=== PATIENT | male | born 1960 | race African-American/Black ===

== ENCOUNTER 2018-12-04 14:56 | Emergency (ER) | payer OTHER ==
[~2018-12-04] VITALS: Ht 182.9 cm; Wt 93.2 kg
[2018-12-04] MEDS ORDERED: COLD MEDS (15:01)
--- NOTE | 2018-12-04 15:50 | REP ---
Chest x-ray: Two views. History: Cough . Comparison study: No comparison . Findings: The lungs are well inflated and free of infiltrate. The pleural angles are sharp. The heart size is normal. Pulmonary vasculature is not increased. No significant bony abnormality is seen. There is some straightening of the normal thoracic kyphosis. Impression: Negative chest x-ray. Electronically Signed by Dwayne Fuentes MD 12/04/2018 03:41 P
[2018-12-04 17:37] LABS: INFLUENZA A AMPLIFICATION POSITIVE (NEGATIVE); INFLUENZA B AMPLIFICATION NEGATIVE (NEGATIVE)
[2018-12-04] MEDS ORDERED: OSEL75CA PO (17:53)
[2018-12-04] MEDS ORDERED: IBUP-1114 PO (17:53)
[2018-12-04] MEDS ORDERED: IBUPROFEN 400 MG TAB PO ONE (18:00)
[2018-12-04] MEDS ORDERED: OSELTAMIVIR PHOSPHATE 75 MG CAP (TAMIFLU) PO ONE (18:00)
[2018-12-04] MEDS ORDERED: NS 1,000 ML IV ONE (18:15)
[2018-12-04 20:01] VITALS: BP 100/68
== END 2018-12-04 19:57 | disposition home or self-care (01) ==
LOC: M ED 14:56
DX: J09.X2 Influenza due to identified novel influenza A virus with other respiratory manifestations (principal)

== ENCOUNTER 2019-08-26 05:52 | Day surgery (SDC) | payer OTHER ==
[~2019-08-26] VITALS: Ht 182.9 cm; Wt 96.6 kg
[~2019-08-26 05:52] MED LIST: COLD MEDS; IBUP-1114 PO; OSEL75CA PO; QC A650T3 PO
[2019-08-26] MEDS ORDERED: NS 1,000 ML IV ONE (06:00)
[2019-08-26] MEDS ORDERED: PROPOFOL 500 MG/50 ML VIAL As Ordered ONE (07:36)
[2019-08-26] MEDS ORDERED: LIDOCAINE 2% INJ 100 MG/5 ML SDV (FOR ANES.) As Ordered ONE (07:36)
--- NOTE | 2019-08-26 07:59 | ROOR ---
Patient Name: Link Don Procedure Date: 08/26/2019 7:37 AM Date of : 1960 Age: 58 Room: [facility] Gender: Male Note Status: Finalized Procedure: Total Colonoscopy to cecum + Bx. Indications: Screening for colorectal malignant neoplasm Providers: Conor Hernandez MD Referring MD: Best Pickett Md Requesting Provider: Medicines: Monitored Anesthesia Care Complications: No immediate complications. Procedure: Pre-Anesthesia Assessment: - The heart rate, respiratory rate, oxygen saturations, blood pressure, adequacy of pulmonary ventilation, and response to care were monitored throughout the procedure. The Colonoscope was introduced through the anus and advanced to the cecum, identified by appendiceal orifice and ileocecal valve. The colonoscopy was performed without difficulty. The patient tolerated the procedure well. The quality of the bowel preparation was excellent. Findings: The perianal and digital rectal examinations were normal. Non-bleeding internal hemorrhoids were found during retroflexion. The hemorrhoids were small and Grade I (internal hemorrhoids that do not prolapse). A localized area of mildly erythematous mucosa was found in the rectum. Biopsies were taken with a cold forceps for histology. The exam was otherwise without abnormality on direct and retroflexion views. Impression: - Non-bleeding internal hemorrhoids. - Erythematous mucosa in the rectum. Biopsied. - The examination was otherwise normal on direct and retroflexion views. - The exam was otherwise normal to the cecum. Recommendation: - Patient has a contact number available for emergencies. The signs and symptoms of potential delayed complications were discussed with the patient. Return to normal activities tomorrow. Written discharge instructions were provided to the patient. - High fiber diet. - Discharge patient to home. - Continue present medications. - Await pathology results. - Telephone GI clinic for pathology results in 1 week. - Repeat colonoscopy in 10 years for screening purposes. - Return to referring physician. - The findings and recommendations were discussed with the patient's family. Conor Hernandez MD Conor Hernandez MD 08/26/2019 7:58:44 AM Electronically signed by Conor Hernandez MD Number of Addenda: 0 Note Initiated On: 08/26/2019 7:37 AM Estimated Blood Loss: Estimated blood loss: none.
[2019-08-26 08:26] VITALS: BP 142/95
== END 2019-08-26 08:28 | disposition home or self-care (01) ==
LOC: M OPP 05:52
PROVIDERS: ATTEND Internal Medicine Gastroenterology
DX: Z12.11 Encounter for screening for malignant neoplasm of colon (principal); K64.0 First degree hemorrhoids; K62.89 Other specified diseases of anus and rectum